=== PATIENT | female | born 1995 | race Caucasian/White ===

== ENCOUNTER 2018-07-31 22:57 | Emergency (ER) | payer SELFPAY ==
[~2018-07-31] VITALS: Ht 180.3 cm; Wt 83.9 kg
[2018-07-31] MEDS: LIDOCAINE 2% 20 ML VIAL. IJ ONE (23:33)
[2018-07-31] MEDS ORDERED: SULF1TAB24 PO (23:39)
[2018-07-31 23:44] VITALS: BP 138/77
--- NOTE | 2018-07-31 23:45 | PHYS DOC ---
Adult General Chief Complaint Chief Complaint laceration HPI HPI 23 years old female presented emergency department with laceration on the left index finger about 1 cm no restriction of movement she is able to move it against resistance Review of Systems Review of Systems Constitutional: Denies fever or chills [] Eyes: Denies change in visual acuity, redness, or eye pain [] HENT: Denies nasal congestion or sore throat [] Respiratory: Denies cough or shortness of breath [] Cardiovascular: No additional information not addressed in HPI [] GI: Denies abdominal pain, nausea, vomiting, bloody stools or diarrhea [] : Denies dysuria or hematuria [] Musculoskeletal: Denies back pain or joint pain [] Integument: Denies rash or skin lesions [] Neurologic: Denies headache, focal weakness or sensory changes [] Endocrine: Denies polyuria or polydipsia [] All other systems were reviewed and found to be within normal limits, except as documented in this note. Current Medications Current Medications Current Medications Medications (Trade) Dose Ordered Sig/Umang Start Time Stop Time Status Last Admin Dose Admin Lidocaine HCl 20 ml 1X ONCE 07/31/18 23:45 07/31/18 23:46 07/31/18 23:33 20 ML Allergies Allergies Allergies Coded Allergies Type Severity Reaction Last Updated Verified cefpodoxime Allergy Severe 07/31/18 Yes ibuprofen Allergy Severe 07/31/18 Yes tinidazole Allergy Severe 07/31/18 Yes Physical Exam Physical Exam Constitutional: Well developed, well nourished, no acute distress, non-toxic appearance. [] HENT: Normocephalic, atraumatic, bilateral external ears normal, oropharynx moist, no oral exudates, nose normal. [] Eyes: PERRLA, EOMI, conjunctiva normal, no discharge. [] Neck: Normal range of motion, no tenderness, supple, no stridor. [] Cardiovascular:Heart rate regular rhythm, no murmur [] Lungs & Thorax: Bilateral breath sounds clear to auscultation [] Abdomen: Bowel sounds normal, soft, no tenderness, no masses, no pulsatile masses. [] Skin: 1 cm laceration left index] Back: No tenderness, no CVA tenderness. [] Extremities: No tenderness, no cyanosis, no clubbing, ROM intact, no edema. [] Neurologic: Alert and oriented X 3, normal motor function, normal sensory function, no focal deficits noted. [] Psychologic: Affect normal, judgement normal, mood normal. [] Current Patient Data Vital Signs Vital Signs Date Time Temp Pulse Resp B/P (MAP) Pulse Ox O2 Delivery O2 Flow Rate FiO2 07/31/18 23:24 98.0 100 20 98 EKG EKG [] Radiology/Procedures Radiology/Procedures [] Course & Med Decision Making Course & Med Decision Making Routine prep skin injected with lidocaine 2% sutures 5. 0 nylon used 3 stitches applied. Wound closed patient is able to move fingers against resistance no restriction of movement splint applied [] Final Impression Final Impression [] Problems: (1) Laceration of left index finger Qualifiers: Qualified Codes: S61.211A - Laceration without foreign body of left index finger without damage to nail, initial encounter Dragon Disclaimer Dragon Disclaimer This electronic medical record was generated, in whole or in part, using a voice recognition dictation system. KIKO SOLIS MD Jul 31, 2018 23:45
== END 2018-07-31 23:45 | disposition home or self-care (01) ==
LOC: ER 22:57
DX: S61.211A Laceration without foreign body of left index finger without damage to nail, initial encounter (principal); Z88.8 Allergy status to other drugs, medicaments and biological substances; Z88.6 Allergy status to analgesic agent; W26.0XXA Contact with knife, initial encounter; Y93.89 Activity, other specified; Y92.89 Other specified places as the place of occurrence of the external cause; Y99.8 Other external cause status
CPT/HCPCS: 12001; 99283; J2001